=== PATIENT | male | born 1990 | race Caucasian/White ===

== ENCOUNTER 2020-06-16 01:45 | Emergency (ER) | payer OTHER ==
[~2020-06-16] VITALS: Ht 170.2 cm; Wt 68.0 kg
[2020-06-16 01:48] VITALS: BP 142/81; Ht 170.2 cm; Wt 68.0 kg
== END 2020-06-16 02:20 | disposition other institution (70) ==
LOC: ED 01:45
DX: Z02.89 Encounter for other administrative examinations (principal)